=== PATIENT | male | born 1990 | race Caucasian/White ===

== ENCOUNTER 2018-02-11 16:34 | Emergency (ER) | payer BC ==
[~2018-02-11] VITALS: Ht 185.4 cm; Wt 90.0 kg
[2018-02-11 17:57] VITALS: BP 128/79; PULSE 98; RESP 18; TEMP 98.7
[2018-02-11] MEDS ORDERED: CARI1CAP PO (18:47)
[2018-02-11] MEDS ORDERED: ENOX40P SQ (18:47)
[2018-02-11] MEDS ORDERED: [UNRECOGNIZED DRUG - CODE] PO (18:47)
[2018-02-11] MEDS ORDERED: LEXA20TA PO (18:47)
[2018-02-11] MEDS ORDERED: LACTTAB8 PO (18:47)
[2018-02-11] MEDS ORDERED: BACI500O9 TOPICAL (18:49)
[2018-02-11] MEDS ORDERED: ASPI-516 CHEW (18:49)
--- NOTE | 2018-02-11 18:59 | PD ---
HPI Chief Complaint: Psychiatric Symptoms Time Seen by Provider: 18:27 Travel History International Travel<30 days: No Contact w/Intl Traveler<30days: No Traveled to known affect area: No History of Present Illness HPI 27-year-old male presents to the emergency room as a transfer from [facility] under a Gonzáles act. Patient was initially admitted 2 months ago after jumping off a 3 story building in an attempt to commit suicide. He states at that time his schizophrenia was acting up and he had powerful thoughts that told him to jump. He has since regretted it and has negative flashbacks towards it. He denies any suicidal or homicidal ideations at this time. States he has begun reading the Bible and his philosophy is evolving. He does have history of schizophrenia. Only medical history is bilateral tibia/fibula fractures for which he is to remain nonweightbearing. He also has a left arm skin graft from the surgery. He denies illicit drug use. States he has been sober for 2 years. [facility] Social History Tobacco Use: No Allergies-Medications Reported Meds & Prescriptions Reported Meds & Active Scripts Active Reported Bacitracin Topical 500 Unit/Gm Oint 1 Applic TOPICAL BID Aspirin 81 Mg Chew 81 Mg CHEW DAILY Fanapt (Iloperidone) 8 Mg Tab PO BID Vraylar (Cariprazine) 1.5 Mg Cap 1.5 Mg PO DAILY Lexapro (Escitalopram Oxalate) 20 Mg Tab 20 Mg PO DAILY Lovenox Inj (Enoxaparin Sodium) 40 Mg/0.4 Ml Syr 40 Mg SQ DAILY Lactobacillus Acidophilus 1 Billion Cell Tab 1 Tab PO DAILY Review of Systems Except as stated in HPI: all other systems reviewed are Neg Physical Exam Narrative GENERAL: Well-nourished, well-developed male in no acute distress. Afebrile. Ambulatory. SKIN: Focused skin assessment warm/dry. HEAD: Normocephalic. EYES: No scleral icterus. No injection or drainage. NECK: Supple, trachea midline. No JVD or lymphadenopathy. CARDIOVASCULAR: Regular rate and rhythm without murmurs, gallops, or rubs. RESPIRATORY: Breath sounds equal bilaterally. No accessory muscle use. MUSCULOSKELETAL: No cyanosis. Bilateral lower extremities are casted. PSYCHIATRIC: No delusional thought processes. No hallucinations. Flat affect. Data Data Last Documented VS Vital Signs Date Time Temp Pulse Resp B/P (MAP) Pulse Ox O2 Delivery O2 Flow Rate FiO2 02/11/18 17:57 98.7 98 18 128/79 (95) MDM Medical Decision Making Medical Screen Exam Complete: Yes Emergency Medical Condition: Yes Medical Record Reviewed: Yes Differential Diagnosis Medical clearance, schizophrenia, suicidal ideation Narrative Course 27-year-old male presents to the emergency room under a Gonzáles act initiated at [facility] after he jumped off a 3 story building 2 months ago. Patient has bilateral tibia-fibula fractures for which he was operated on. He was medically cleared and then transferred here to be seen by psychiatrist. Patient denies suicidal or homicidal ideation at this time. States he regrets jumping off a 3 story building previously. He denies any new medical complaints. Given patient was just transferred in medically cleared by outside facility, blood work will not be repeated here. He is medically cleared to see psychiatry. Condition: Stable Tawny Lino February 11, 2018 18:59
[2018-02-12 08:00] VITALS: BP 124/70; PULSE 71; RESP 16; O2SAT 98
--- NOTE | 2018-02-12 08:26 | PD ---
Physical Exam Date Seen by Provider: February 12, 2018 Time Seen by Provider: 08:21 Narrative 27-year-old male previously medically cleared for psychiatric evaluation under the Gonzáles act has been seen by Dr. Rodriguez and deemed to be psychiatrically stable. Since he has been psychiatrically cleared by Dr. Rodriguez, he will be discharged and to follow-up with rehabilitation services. Patient was reportedly already set up for outpatient rehabilitation services according to the hospital he was transferred from. Patient's family was called for ride home. Data Data Last Documented VS Vital Signs Date Time Temp Pulse Resp B/P (MAP) Pulse Ox O2 Delivery O2 Flow Rate FiO2 02/11/18 17:57 98.7 98 18 128/79 (95) Orders Orders Psych Screen (02/11/18 19:07) Diet Regular Basic (02/12/18 Breakfast) Ed Discharge Order (02/12/18 08:28) MDM Medical Record Reviewed: Yes Supervised Visit with NORA: Yes Narrative Course 27-year-old male previously medically cleared for psychiatric evaluation under the Gonzáles act has been seen by Dr. Rodriguez and deemed to be psychiatrically stable. Since he has been psychiatrically cleared by Dr. Rodriguez, he will be discharged and to follow-up with rehabilitation services. Patient was reportedly already set up for outpatient rehabilitation services according to the hospital he was transferred from. Patient's family was called for ride home. Diagnosis Primary Impression: Medical clearance for psychiatric admission Additional Impression: Bilateral ankle fractures Qualified Codes: S82.891F - Other fracture of right lower leg, subsequent encounter for open fracture type IIIA, IIIB, or IIIC with routine healing; S82.892F - Other fracture of left lower leg, subsequent encounter for open fracture type IIIA, IIIB, or IIIC with routine healing Patient Instructions: General Instructions Additional Instruction: Since he has been psychiatrically cleared by Dr. Rodriguez, he will be discharged back to his previous hospital for rehabilitation services. Med/Other Pt SpecificInfo: No Change to Meds Disposition: 01 DISCHARGE HOME Condition: Stable Caden Petit February 12, 2018 08:26
--- NOTE | 2018-02-12 08:48 | PD.PSY.CON ---
Provisional Diagnosis Admission Date Gaston I. Schizophrenia Gaston II. Deferred Gaston III. No medical history Gaston IV. 2 previous highly lethal suicidal attempts Gaston V. 55 History of Present Illness Service Psychiatry Consult Requested By ER Reason for Consult Suicidal attempt by jumping of a third floor Primary Care Physician Unknown HPI The patient is a 27-year-old man, domiciled with his parents in [facility], single, unemployed, with psychiatric history of schizophrenia , amphetamines and alcohol use disorder now in a sustained full remission, diagnosed at the age of [age] years old, for previous psychiatric hospitalizations , 2 previous suicide attempts, the last suicidal attempt was jumping off a third floor with the result of multitrauma requiring several surgeries 2 months ago, outpatient psychiatric care in [facility], he is on Fanapt 8 bid, Celexa 20 mg and Vraylar 1.5 mg daily, no significant medical history, who presents to the emergency room as a transfer from [facility] under a Gonzáles act. Patient was initially admitted 2 months ago after jumping off a 3 story building in an attempt to commit suicide. He states at that time his schizophrenia was acting up and he had powerful thoughts that told him to jump. He has since regretted it and has negative flashbacks towards it. He denies any suicidal or homicidal ideations at this time. States he has begun reading the Bible and his philosophy is evolving. He does have history of schizophrenia. Only medical history is bilateral tibia/fibula fractures for which he is to remain nonweightbearing. He also has a left arm skin graft from the surgery. He denies illicit drug use. States he has been sober for 2 years. EMR was reviewed. The case was widely discussed with ER team. Collateral information from his father Mr. Moreira was obtained. On psychiatric evaluation I find a patient that is calm, cooperative and pleasant. The patient reports that he feels much better. Patient says that on December 19 , while he was transitioning from Invega to Fanapt he is started decompensated of his schizophrenia. He was walking in the street and he saw some police car flushing their lights and he became very paranoid thinking that the police was following him, he ran to a parking garage and jump off the third floor "running away from police and also trying to commit suicide". He was hospitalized, had several surgeries, was seen by psychiatry a couple times, he took his medication what he was in the hospital and at this moment the patient reports that he is at baseline. The patient reports good mood, he says that he is highly motivated to continue his medications, to be free, to start a new job and look around new relationships. The patient denies suicidal enemas ideation , he denies visual and auditory hallucinations. The patient is logical, coherent and relevant. The patient denies delusions, denies paranoia. On my evaluation no loosening of associations, no ideas of reference, no amol, no paranoia are observed. The patient is fully oriented 3, without fluctuation of consciousness, no attention deficit. The patient denies the use of illegal drugs and alcohol. His father contacted by phone, confirms that the patient is at baseline, he has no concerns about psychotic decompensation at this moment. He confirms that the patient has an excellent outpatient care and has been responding appropriately to current psychotropic regimen. Review of Systems Constitutional: DENIES: Diaphoretic episodes, Fatigue, Fever, Weight gain, Weight loss, Chills, Dizziness, Change in appetite, Night Sweats Endocrine: DENIES: Heat/cold intolerance, Polydipsia, Polyuria, Polyphagia Eyes: DENIES: Blurred vision, Diplopia, Eye inflammation, Eye pain, Vision loss , Photosensitivity, Double Vision Ears, nose, mouth, throat: DENIES: Tinnitus, Hearing loss, Vertigo, Nasal discharge, Oral lesions, Throat pain, Hoarseness, Ear Pain, Running Nose, Epistaxis, Sinus Pain, Toothache, Odynophagia Respiratory: DENIES: Apneas, Cough, Snoring, Wheezing, Hemoptysis, Sputum production, Shortness of breath Cardiovascular: DENIES: Chest pain, Palpitations, Syncope, Dyspnea on Exertion , PND, Lower Extremity Edema, Orthopnea, Claudication Gastrointestinal: DENIES: Abdominal pain, Black stools, Bloody stools, Constipation, Diarrhea, Nausea, Vomiting, Difficulty Swallowing, Anorexia Genitourinary: DENIES: Sexual dysfunction, Urinary frequency, Urinary incontinence, Urgency, Hematuria, Dysuria, Nocturia, Penile Discharge, Testicular Pain, Testicular Swelling Musculoskeletal: DENIES: Joint pain, Muscle aches, Stiffness, Joint Swelling, Back pain, Neck pain Integumentary: DENIES: Abnormal pigmentation, Nail changes, Pruritus, Rash Hematologic/lymphatic: DENIES: Bruising, Lymphadenopathy Immunologic/allergic: DENIES: Eczema, Urticaria Neurologic: DENIES: Abnormal gait, Headache, Localized weakness, Paresthesias, Seizures, Speech Problems, Tremor, Poor Balance Psychiatric: DENIES: Anxiety, Confusion, Mood changes, Depression, Hallucinations, Agitation, Suicidal Ideation, Homicidal Ideation, Delusions Past Family Social History Reported Medications Bacitracin Topical (Bacitracin Topical) 500 Unit/Gm Oint, 1 APPLIC TOPICAL BID for Infection, #30 GM 0 Refills 02/11/18 Aspirin (Aspirin) 81 Mg Chew, 81 MG CHEW DAILY, TAB 0 Refills 02/11/18 Iloperidone (Fanapt) 8 Mg Tab, PO BID, TAB 02/11/18 Cariprazine (Vraylar) 1.5 Mg Cap, 1.5 MG PO DAILY, #30 CAP 0 Refills 02/11/18 Escitalopram (Lexapro) 20 Mg Tab, 20 MG PO DAILY, #30 TAB 0 Refills 02/11/18 Enoxaparin Inj (Lovenox Inj) 40 Mg/0.4 Ml Syr, 40 MG SQ DAILY for Blood Clot Prevention, SYRINGE 0 Refills 02/11/18 Lactobacillus Acidophilus (Lactobacillus Acidophilus) 1 Billion Cell Tab, 1 TAB PO DAILY for Nutritional Supplement, #30 TAB 0 Refills 02/11/18 Family Psych History His grandmother was diagnosed with bipolar disorder Social History The patient was born and raised in [place], he lives in [facility], he lives with his parents, his single, unemployed, his highest level of education is a bachelor degree in accounting Patient's Strengths (min. 2) Good family support, outpatient psychiatric Physical Exam No psychomotor agitation or retardation, no EPS, no anesthesia, no tremors, Vital Signs Vital Signs Date Time Temp Pulse Resp B/P (MAP) Pulse Ox O2 Delivery O2 Flow Rate FiO2 02/11/18 17:57 98.7 98 18 128/79 (95) Mental Status Examination Appearance: Appropriate Consciousness: Alert Orientation: x4 Motor Activity: Normal gait Speech: Unremarkable Language: Adequate Fund of Knowledge: Adequate Attention and Concentration: Adequate Memory: Unremarkable Mood: Appropriate Affect: Appropriate Thought Process & Associations: Intact Thought Content: Appropriate Hallucination Type: None Delusion Type: None Suicidal Ideation: No Suicidal Plan: No Suicidal Intention: No Homicidal Ideation: No Homicidal Plan: No Homicidal Intention: No Insight: Adequate Judgment: Adequate Assessment & Plan Problem List: (1) Schizophrenia ICD Codes: F20.9 - Schizophrenia, unspecified Assessment & Plan: At the moment of my psychiatric evaluation the patient does not present any neuropsychiatric symptoms or require an immediate psychiatric intervention. The patient denies symptomatology of depression, anxiety, amol or psychosis. He denies suicidal enemas ideation, he denies visual and auditory hallucinations. The patient is completely logical, coherent and relevant. Oriented 3, no attention deficit, no fluctuation of consciousness. No loosening of associations, no paranoia, no amol, no ideas of reference, no tangentiality are present. There is a patient with a long history of schizophrenia, for previous psychiatric hospitalizations, 2 highly lethal suicidal attempts, the last one by jumping off a third floor with the result of multiple fractures. But, at this time the patient is at baseline, he is compliant with his medications, and this is also confirmed by his family. Continue current psychotropic regimen. There is no indication for involuntary psychiatric admission at this moment. Gonzáles act will be lifted. Assessment & Plan Estimated LOS: Gene Márquez MD February 12, 2018 08:48
[2018-02-12 12:02] VITALS: BP 129/72
== END 2018-02-12 12:04 | disposition home or self-care (01) ==
LOC: NEDAMB 16:34 → NEPD 02-12 12:04
DX: F20.9 Schizophrenia, unspecified (principal); S82.891F Other fracture of right lower leg, subsequent encounter for open fracture type IIIA, IIIB, or IIIC with routine healing; S82.892 Other fracture of left lower leg
CPT/HCPCS: 99284